=== PATIENT | female | born 1950 ===

== ENCOUNTER 2019-01-31 12:13 | Inpatient (IN) ==
[2019-01-31] MEDS ORDERED: CeFAZolin Syr 2,000MG/20 ML 2,000 MG/20 ML SYRINGE IVPB ONE (12:35)
[2019-01-31] MEDS ORDERED: Ringers Solution, Lactated 1,000 ML IVC SCH ×2 (12:45→16:24)
[2019-01-31] MEDS ORDERED: ROPIVACAINE/PF/NS 0.25% 1 EACH SYRINGE INTRAART ONE (12:52)
[2019-01-31] MEDS ORDERED: Ropivacaine/PF 0.5% 30 ML VIAL ONE (12:52)
[2019-01-31] MEDS ORDERED: *HR* HYDROmorphone (PF) 1 MG/ML SYRINGE IVP PRN (12:56)
[2019-01-31] MEDS ORDERED: Ondansetron 4 MG/2 ML VIAL IVP ONE (12:56)
[2019-01-31] MEDS ORDERED: *HR* OxyCODONE Immed Rel 5 MG TABLET PO PRN ×2 (12:56→16:24)
[2019-01-31] MEDS ORDERED: *HR* Promethazine 25 MG/ML VIAL IVP PRN (12:56)
[2019-01-31] MEDS ORDERED: Albuterol 2.5 MG/3 ML NEBULIZER ONE (12:57)
[2019-01-31] MEDS ORDERED: Albuterol 2.5 MG/3 ML NEBULIZER IH ONE (12:57)
[2019-01-31] MEDS ORDERED: Ethanol\\Acetic Acid\\Na Ace\\Ben 1,000 ML IRRIG.SOLN IR ONE (13:13)
[2019-01-31] MEDS ORDERED: *HR* Propofol 200 MG/20 ML VIAL IVP ONE (13:18)
[2019-01-31] MEDS ORDERED: *HR* Rocuronium Bromide 50 MG/5 ML VIAL ONE (13:18)
[2019-01-31] MEDS ORDERED: Lidocaine -MPF 2% 2 ML VIAL ONE (13:18)
[2019-01-31] MEDS ORDERED: *HR* FentaNYL (PF) 100 MCG/2 ML VIAL ONE (13:19)
[2019-01-31] MEDS ORDERED: *HR* Midazolam HCl 2 MG/2 ML VIAL ONE (13:20)
[2019-01-31] MEDS ORDERED: *HR* Succinylcholine 200 MG/10 ML VIAL IVP ONE (13:22)
[2019-01-31] MEDS ORDERED: Lidocaine -MPF 4% 5 ML AMPUL ONE (13:24)
[2019-01-31] MEDS ORDERED: *HR* PHENYLEPHRINE 1,000 MCG/10 ML SYRINGE IVP ONE ×2 (13:58→16:18)
[2019-01-31] MEDS ORDERED: Dexamethasone 4 MG/ML VIAL ONE (14:19)
[2019-01-31] MEDS ORDERED: Ondansetron 4 MG/2 ML VIAL ONE (14:19)
[2019-01-31 16:13] LABS: Hematocrit 28.1 % (35.3-44.9)
[2019-01-31 16:14] LABS: Hemoglobin 9.1 g/dL (11.5-15.4)
[2019-01-31] MEDS ORDERED: EPHEDrine 50 MG/ML VIAL ONE (16:22)
[2019-01-31] MEDS ORDERED: Temazepam 15 MG CAPSULE PO PRN (16:24)
[2019-01-31] MEDS ORDERED: Ondansetron 4 MG/2 ML VIAL IVP PRN (16:24)
[2019-01-31] MEDS ORDERED: traMADol 50 MG TABLET PO PRN (16:24)
[2019-01-31] MEDS ORDERED: Naloxone 0.4 MG/ML INJ IVP PRN (16:24)
[2019-01-31] MEDS ORDERED: *HR* OxyCODONE/APAP 5/325 TABLET PO PRN (16:24)
[2019-01-31] MEDS ORDERED: Sennosides 8.6 MG TABLET PO PRN (16:24)
[2019-01-31] MEDS ORDERED: MOM Conc 10 ML UD.LIQ PO PRN (16:24)
[2019-01-31] MEDS ORDERED: *HR* Enoxaparin 30 MG/0.3 ML SYRINGE SQ SCH ×2 (16:45→18:00)
[2019-01-31 18:11] VITALS: BP 123/77
[2019-01-31] MEDS ORDERED: Lisinopril 20 MG TABLET PO SCH (21:00)
[2019-02-01] MEDS ORDERED: Cholecalciferol (D-3) 1,000 UNIT (25MCG) TABLET PO SCH (09:00)
== END 2019-01-31 18:03 | disposition home or self-care (01) | DRG 483 ==
LOC: SAMDAY 12:13 → 3NENU 16:22
PROVIDERS: ADMIT Orthopaedic Surgery; ATTEND Orthopaedic Surgery